=== PATIENT | female | born 1950 | race Caucasian/White ===

== ENCOUNTER 2018-02-27 14:28 | Outpatient (CLI) | payer BC | END 2018-02-27 14:29 | disposition home or self-care (01) | LOC: BICMAMMO 14:28 | PROVIDERS: ATTEND Obstetrics & Gynecology | DX: Z12.31 Encounter for screening mammogram for malignant neoplasm of breast (principal) | CPT/HCPCS: 77063; 77067 ==

== ENCOUNTER 2018-08-22 10:26 | Outpatient (CLI) | payer BC ==
--- NOTE | 2018-08-22 12:00 | RAD ---
THREE VIEWS CERVICAL SPINE: Date: 08-22-18 Provided Clinical History: Bilateral hand numbness. FINDINGS: Comparison is made with 01-19-16. Changes of ACDF from C4 through C7 redemonstrated without evidence for hardware loosening or migratio n. Cervical alignment appears normal. Vertebral body heights appear preserved. No prevertebral soft t issue swelling apparent. The visualized lung apices appear clear. Osseous excrescence arises from the anterior superior aspect of the C4 vertebral body and extends cranial to the cervical plate. IMPRESSION: Post-operative changes involving the cervical spine. POS: [facility]
--- NOTE | 2018-08-22 13:56 | MRI ---
CERVICAL SPINE MRI WITHOUT CONTRAST: Date: 08/22/18 HISTORY: Cervical radiculopathy. Status post cervical fusion. COMPARISON: 07/01/15. TECHNIQUE: Cervical spine MRI is performed without intravenous Gadolinium administration. Multisequential, multi planar imaging is performed. FINDINGS: Appropriate T1 marrow signal intensity in the upper cervical vertebra and the upper thoracic vertebra . Evaluation of the cervical spine from C4-C7 is limited by metallic susceptibility artifact associat ed with an anterior fusion plate. There is stable T2 hyperintensity involving the cervical cord at the C4-C5 level compatible with cord malacia. No significant STIR hyperintensity to suggest a vertebral body edema or ligamentous injury. Visualized brain parenchyma, cervicomedullary junction, and the upper thoracic cord have a normal siz e and signal intensity. C2-C3: No significant disc osteophyte complex. No significant central canal stenosis. Foramina are patent. C3-C4: Broad based disc osteophyte complex abuts the thecal sac. Ventral subarachnoid space is effaced and t here is mild flattening of the cervical cord. There is mild central canal stenosis. Mild right forami nal narrowing. Left neural foramen is patent. When compared to the previous examination, the degree o f central canal stenosis has not progressed. C4-C5: There is a broad based osteophyte ridge. Ventral subarachnoid space is still maintained. Moderate ezio tral canal stenosis. Moderate to severe bilateral foraminal narrowing. C5-C6: There is a central/left paracentral osteophyte ridge. Moderate central canal stenosis and moderate de formity of the left hemicord. Right neural foramen is patent. Mild left neural foraminal narrowing. T he degree of central canal stenosis is similar to slightly less than the previous examination. C6-C7: There is a central osteophyte ridge with mild central canal stenosis. Neural foramina are patent bila terally. C7-T1: No significant central canal stenosis. Neural foramina are patent bilaterally. IMPRESSION: Degenerative changes and postoperative changes of the cervical spine as described above. The previous ly noted severe central canal stenosis at C4-C5 is less evident. There is still evidence of malacic change involving the posterior aspect of the spinal cord at C4-C5. POS: [facility]
--- NOTE | 2018-08-22 15:41 | MRI ---
MRI LUMBAR SPINE WITHOUT CONTRAST: Date: 08/22/18 HISTORY: Lumbar radiculopathy. Low back pain with sciatica in right leg. Numbness to ball of left foot. COMPARISON: None. TECHNIQUE: MRI of lumbar spine is performed without intravenous Gadolinium administration. Multisequential, mult iplanar imaging is performed. FINDINGS: An appropriate T1 marrow signal intensity of the lumbar vertebra. Vertebral body height is maintained . There is no fracture. Intrinsic T1 and T2 hyperintensity of L1 likely representing a small hemangio ma. Type II Modic changes at L5-S1. Symmetric signal intensity of the psoas muscles. Appropriate signal intensity of the visualized solid organs. Conus medullaris terminates at the inferior aspect of the L1. Left extrarenal and right extrarenal pelvis is of noted. T12-L1: Adequate disc hydration. No significant central canal stenosis. Foramina are patent. L1-L2: Adequate disc hydration. Mild ligamentum flavum thickening and facet hypertrophy. No significant cent ral canal stenosis. Bilaterally, neural foramina are patent. L2-L3: Desiccation with mild loss of disc space height. Generalized disc bulge, ligamentum flavum thickening , and facet hypertrophy result in mild central canal stenosis. Mild bilateral foraminal narrowing. L3-L4: Desiccation with mild loss of disc space height. No significant posterior disc abnormality. There is mild ligamentum flavum thickening and facet hypertrophy. Mild central canal stenosis. Mild bilateral neural foraminal narrowing. L4-L5: Mild loss of disc space height. Generalized disc bulge, ligamentum flavum thickening, and facet hyper trophy result in mild central canal stenosis. Disc material abuts but does not obscure either zina ing L5 nerve root. Mild right and left foraminal narrowing. L5-S1: Severe loss of disc space height. No significant central canal stenosis. Mild facet hypertrophy. Mode rate right and moderate to severe left foraminal narrowing predominantly due to disc material and pos terior element hypertrophy. IMPRESSION: 1. Degenerative changes of the lumbar spine as above. There is no high grade central canal stenosis. There is mild narrowing at multiple levels of the lumbar spine. 2. Significant bilateral foraminal narrowing at L5-S1. POS: [facility]
== END 2018-08-22 10:27 | disposition home or self-care (01) ==
LOC: TBSIIMAG 10:26
PROVIDERS: ATTEND Neurological Surgery
DX: M50.30 Other cervical disc degeneration, unspecified cervical region (principal); M47.26 Other spondylosis with radiculopathy, lumbar region; M99.83 Other biomechanical lesions of lumbar region; M48.061 Spinal stenosis, lumbar region without neurogenic claudication; Z98.1 Arthrodesis status
CPT/HCPCS: 72040; 72141; 72148

== ENCOUNTER 2019-07-07 09:39 | Outpatient (CLI) | payer BC ==
--- NOTE | 2019-07-08 06:48 | MMO ---
Bilateral MAMMO Bilat Screen [facility]. CLINICAL HISTORY: Patient is 69 years old and is seen for screening. The patient has no family history of breast cancer. The patient has no personal history of cancer. The patient has a history of bilateral Explantation in 1994. VIEWS: The views performed were: bilateral craniocaudal with tomosynthesis and bilateral mediolateral oblique with tomosynthesis. FILMS COMPARED: The present examination has been compared to prior imaging studies performed at [facility] on 07/02/2014, 09/23/2015, 12/14/2016 and 02/27/2018. MAMMOGRAM FINDINGS: There are scattered fibroglandular densities. There are no suspicious masses, suspicious calcifications, or new areas of architectural distortion. IMPRESSION: THERE IS NO MAMMOGRAPHIC EVIDENCE OF MALIGNANCY. A ROUTINE FOLLOW-UP MAMMOGRAM IN 1 YEAR IS RECOMMENDED. THE RESULTS OF THIS EXAM WERE SENT TO THE PATIENT. ACR BI-RADS Category 1 - Negative MAMMOGRAPHY NOTE: 1. A negative mammogram report should not delay a biopsy if a dominant of clinically suspicious mass is present. 2. Approximately 10% to 15% of breast cancers are not detected by mammography. 3. Adenosis and dense breasts may obscure an underlying neoplasm. Reported by: CELESTINO MENDOZA MD Electonically Signed: [id number]
== END 2019-07-07 09:40 | disposition home or self-care (01) ==
LOC: BICMAMMO 09:39
PROVIDERS: ATTEND Internal Medicine
DX: Z12.31 Encounter for screening mammogram for malignant neoplasm of breast (principal)
CPT/HCPCS: 77063; 77067

== ENCOUNTER 2020-01-02 16:32 | Outpatient (CLI) | payer BC ==
--- NOTE | 2020-01-02 19:10 | RAD ---
Exam: 2 views right clavicle HISTORY: Patient fell last week and has a right humerus fracture. Pain. FINDINGS: Redemonstration of a proximal right humerus fracture. Visualized clavicle and ribs are unre markable. IMPRESSION: Unremarkable 2 views right clavicle
--- NOTE | 2020-01-02 19:12 | RAD ---
Exam: 4 views cervical spine HISTORY: Neck pain. Right humerus fracture. FINDINGS: AP, lateral neutral, lateral flexion and lateral extension views of the cervical spine are submitted for dictation No prevertebral soft tissue swelling. Predental space is normal. Cervical spine is adequately assesse d from C3 1 through C7-T1 articulation. There is an anterior fusion plate with transvertebral body screw from C3-4 through C7. No perihardware lucency. Disc prosthesis from C4-C5 through C6-C7. Straig htening of normal cervical lordosis is presumed to be due to fusion. Spondylolisthesis: Neutral position: 4.8 mm of anterolisthesis of C7 upon T1 Extension: 4.6 mm of anterolisthesis Flexion: 3.4 mm of anterolisthesis On the AP projection, no malalignment IMPRESSION: 1. Cervical fusion from C4 through C7 without evidence of complication. 2. Grade 1 anterolisthesis of C7 upon T1 is described above. Mild change upon flexion. Correlate clin ically.
== END 2020-01-02 16:33 | disposition home or self-care (01) ==
LOC: SCSRAD 16:32
PROVIDERS: ATTEND Chiropractor
DX: W14.XXXA Fall from tree, initial encounter (principal)
CPT/HCPCS: 72050

== ENCOUNTER 2020-01-15 10:17 | Outpatient (CLI) | payer BC ==
--- NOTE | 2020-01-15 11:09 | RAD ---
RIGHT HAND 3 VIEWS: HISTORY: Hand pain. FINDINGS: There are some osteoarthritic changes of the hand. Some minimal changes of the interphalangeal joint s. Mild change of the 1st metacarpal joint space and triscaphe joint. No erosive bony change that w ould suggest an inflammatory arthritis. IMPRESSION: Mild osteoarthritic changes of the hand. POS: [facility]
== END 2020-01-15 10:18 | disposition home or self-care (01) ==
LOC: TBSIIMAG 10:17
PROVIDERS: ATTEND Neurological Surgery
DX: M79.641 Pain in right hand (principal); M79.631 Pain in right forearm; M25.521 Pain in right elbow; M19.041 Primary osteoarthritis, right hand

== ENCOUNTER 2020-01-15 11:18 | Outpatient (CLI) | payer BC ==
--- NOTE | 2020-01-15 12:25 | RAD ---
RADIOGRAPH RIGHT ELBOW 4 VIEWS: DATE: 01/15/2020. HISTORY: A 69-year-old female with right elbow pain. FINDINGS: No fracture or dislocation. Joint spaces are maintained without erosions or significant osteophytes. Cluster of small and tiny calcific or ossific fragments in the soft tissues very close to the dista l humeral lateral epicondyle. Diffuse soft tissue edema. IMPRESSION: 1. Diffuse soft tissue edema. 2. No fracture. 3. Cluster of soft tissue calcifications at lateral aspect of elbow. This is nonspecific. 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 POS: [facility]
--- NOTE | 2020-01-15 12:30 | RAD ---
RADIOGRAPH RIGHT FOREARM 2 VIEWS: DATE: 01/15/2020. HISTORY: A 69-year-old female with severe posttraumatic persistent forearm pain after fall on 01/02/2020. FINDINGS: Soft tissue edema. No fracture of radius or ulna. No destructive osseous lesion. IMPRESSION: 1. No fracture. 2. Soft tissue edema. POS: [facility]
== END 2020-01-15 11:19 | disposition home or self-care (01) ==
LOC: SCSRAD 11:18
PROVIDERS: ATTEND Neurological Surgery
DX: M79.641 Pain in right hand (principal); M79.631 Pain in right forearm; M25.521 Pain in right elbow; M79.89 Other specified soft tissue disorders